=== PATIENT | male | born 1960 | race Caucasian/White ===

== ENCOUNTER 2017-03-28 08:27 | Inpatient (IN) | payer OTHER ==
[~2017-03-28] VITALS: Ht 188 cm; Wt 131.5 kg
--- NOTE | 2017-03-28 08:38 | ED CARDIAC/CP/PALPITATIONS ---
History of Present Illness General Chief Complaint: General Adult Stated Complaint: SENT IN BY GI FOR ?RAPID AFIB Source: patient, old records Exam Limitations: no limitations Vital Signs & Intake/Output Vital Signs & Intake/Output Vital Signs Date Time Temp Pulse Resp B/P B/P Pulse O2 O2 Flow FiO2 Mean Ox Delivery Rate 03/28 1239 135 18 110/84 100 Room Air 03/28 1115 98.3 136 18 110/80 100 Room Air 03/28 1005 98.6 140 18 112/82 100 Room Air 03/28 1002 140 112/82 03/28 0914 154 18 118/84 100 Room Air 03/28 0911 150 118/84 03/28 0844 99 Room Air 03/28 0841 155 124/90 03/28 0834 98.2 155 20 124/90 99 Room Air Allergies Coded Allergies: No Known Allergies (03/28/17) Reconcile Medications Amlodipine Besylate 10 MG TABLET 1 TAB PO DAILY HEART (Reported) Losartan/Hydrochlorothiazide (Losartan-Hctz 100-25 MG Tab) 100 MG-25 MG TABLET 1 TAB PO DAILY HEART (Reported) Triage Note: PT TO ED FROM GI SUITE FOR RAPID AFIB, ON ARRIVAL TO ED PT STATING HE HAS A HX OF AFIB "IN 2009 BUT IT RESOLVED WITH MEDS IN THE HOSPITAL" PT REPORTING HE WAS IN THE GI SUITE FOR A COLONSCOPY TODAY AND STAFF NOTICED "MY HEART RATE WAS REALLY HIGH" PT DENIES ANY COMPLAINTS RECENTLY INCLUDING DENYING CP, SOB, MADISON, HEADACHES. REPORTING A RECENT HX OF CARPAL TUNNEL SURGERY AND SOME GENERAL FATIGUE DUE TO WORK SCHEDULE. PT ARRIVES WITH A 20G IN LAC PLACED BY GI SUITE, EKG COMPLETED BY DR ADELA CARNES AT BEDSIDE TO DISCUSS POC AND EVAL. Triage Nurses Notes Reviewed? yes HPI: Patient went to the GI suite this morning for a colonoscopy. Patient did the prep last night. He went to the GI suite this morning and was found to be in rapid A. fib. Patient denies any chest pain or palpitations. Patient states he did have an EKG approximately 2 months ago prior to having carpal tunnel surgery and he was in sinus rhythm at that time. Patient was in A. fib once the past back in 2010 and required admission to the hospital. Patient denies any lightheadedness. There is no nausea or vomiting. There is no dyspnea on exertion. There is no shortness of breath. Past History Travel History Traveled to [place] past 21 day No Medical History Any Pertinent Medical History? see below for history Cardiovascular: AFIB (PAROXYSMAL) Surgical History Surgical History: CARPAL TUNNEL Psychosocial History Who do you live with Spouse What is your primary language Serbian Tobacco Use: Never used ETOH Use: occasional use Illicit Drug Use: denies illicit drug use Family History Hx Contributory? No Review of Systems Review of Systems Constitutional: Reports: no symptoms. EENTM: Reports: no symptoms. Respiratory: Reports: no symptoms. Cardiovascular: Reports: no symptoms. GI: Reports: no symptoms. Genitourinary: Reports: no symptoms. Musculoskeletal: Reports: no symptoms. Skin: Reports: no symptoms. Neurological/Psychological: Reports: no symptoms. Hematologic/Endocrine: Reports: no symptoms. Immunologic/Allergic: Reports: no symptoms. All Other Systems: Reviewed and Negative Physical Exam Physical Exam General Appearance: well developed/nourished, alert, awake, moderate distress Head: atraumatic Eyes: Bilateral: PERRL, EOMI. Ears, Nose, Throat: normal pharynx, normal ENT inspection Neck: normal inspection, supple, full range of motion Respiratory: normal breath sounds, chest non-tender, no respiratory distress, lungs clear Cardiovascular: normal peripheral pulses, tachycardia, irregularly irregular Gastrointestinal: normal bowel sounds, soft, non-tender, no organomegaly Back: normal inspection, normal range of motion Extremities: normal inspection, normal capillary refill, normal range of motion, no edema Neurologic/Psych: no motor/sensory deficits, awake, alert, oriented x 3, normal gait, normal mood/affect Skin: intact, normal color, warm/dry Lymphatic: no anterior cervical radha Core Measures ACS in differential dx? No Severe Sepsis Present: No Septic Shock Present: No Progress Differential Diagnosis: AMI, atrial fibrillation, hypovolemia, hyperthyroid, myocarditis, pericarditis, pneumonia, pneumothorax, pulmonary embolism Plan of Care: Orders Procedure Date/time Status CBC WITHOUT DIFFERENTIAL 03/29 06 Active BASIC ELECTROLYTES PLUS BUN&CR 03/29 0600 Active Heart Healthy Diet 03/28 L Active TROPONIN LEVEL 03/28 2100 Active EKG 03/28 2100 Active TROPONIN LEVEL 03/28 1500 Active EKG 03/28 1500 Active ECHOCARDIOGRAM 03/28 1016 Active Pathway - chart 03/28 0957 Active House Staff 03/28 0957 Active Patient Data 03/28 0957 Active Code Status 03/28 0957 Active Patient Data 03/28 0948 Active Admit to inpatient 03/28 0946 Active Intake & Output 03/28 0844 Active LIPID PANEL 03/28 0840 Complete Telemetry/Tech Intern 03/28 0838 Active URINALYSIS 03/28 0838 Complete THYROID STIMULATING HORMONE 03/28 0838 Complete TROPONIN LEVEL 03/28 0838 Complete PARTIAL THROMBOPLASTIN TIME 03/28 0838 Complete PROTHROMBIN TIME 03/28 0838 Complete COMPREHENSIVE METABOLIC PANEL 03/28 0838 Complete CBC WITHOUT DIFFERENTIAL 03/28 0838 Complete EKG 03/28 0828 Active Lab Add-on Test 03/28 UNK Active VTE Mechanical Prophylaxis 03/28 UNK Active Telemetry/Tech Intern 03/28 UNK Active Nursing Misc 03/28 UNK Active Current Medications Sig/Robert Start time Last Medication Dose Stop Time Status Admin Heparin Sodium 5,000 UNIT Q8 03/28 1400 CAN (Porcine) Acetaminophen 325 MG Q6 PRN 03/28 1000 AC (Tylenol) Oxycodone HCl 5 MG Q6 PRN 03/28 1000 AC (Roxicodone) Oxycodone/ 2 TAB Q6 PRN 03/28 1000 AC Acetaminophen (Percocet) Diltiazem HCl 125 MG Q12H 03/28 0945 AC 03/28 (Cardizem DRIP) 1134 Dextrose/Water 100 ML (D5W) Heparin Sodium 25,000 UNIT Q24H 03/28 0845 AC 03/28 (Porcine) 0942 (Heparin) Sodium Chloride 500 ML Laboratory Tests 03/28/17 1050: Urine Color YEL, Urine Clarity CLEAR, Urine pH 6.5, Ur Specific [place] 1.010, Urine Protein NEG, Urine Ketones NEG, Urine Nitrite NEG, Urine Bilirubin NEG, Urine Urobilinogen 0.2, Ur Leukocyte Esterase NEG, Ur Microscopic SEDIMENT EXAMINED, Urine RBC RARE, Ur Epithelial Cells RARE, Urine Hemoglobin TRACE- INTACT H, Urine Glucose NEG 03/28/17 0840: Anion Gap 10, Estimated GFR > 60, BUN/Creatinine Ratio 16.0, Glucose 152 H, Calcium 9.0, Total Bilirubin 1.0, AST 20, ALT 36, Alkaline Phosphatase 52, Troponin I < 0.01, Total Protein 6.6, Albumin 3.8, Globulin 2.8, Albumin/ Globulin Ratio 1.4, Triglycerides 108, Cholesterol 116, LDL Cholesterol, Calc 62 L, HDL Cholesterol 33 L, Cholesterol/HDL Ratio 3, TSH 2.700, PT 12.7 H, INR 1.21 H, APTT 27, CBC w Diff NO MAN DIFF REQ, RBC 4.51 L, MCV 90.2, MCH 29.9, RDW 14.1, MPV 8.2, Gran % 59.8, Lymphocytes % 31.4, Monocytes % 6.1, Eosinophils % 2.4, Basophils % 0.3, Absolute Granulocytes 5.0, Absolute Lymphocytes 2.6, Absolute Monocytes 0.5, Absolute Eosinophils 0.2, Absolute Basophils 0, PUBS MCHC 33.2 Diagnostic Imaging: Viewed by Me: Radiology Read. Discussed w/RAD: Radiology Read. Initial ED EKG: AFIB (with rvr) Prior EKG: changed Rhythm Strip: atrial fibrillation (with rvr) Comments: pt not responding to iv boluses iv cardizem, drip started. Departure Departure Disposition: STILL A PATIENT Condition: Guarded Clinical Impression Primary Impression: Atrial fibrillation with RVR Referrals: ARJUN EVERETT MD (PCP/Family) Departure Forms: Customer Survey General Discharge Information Admission Note Spoke With: NATY GILBERT MD Documentation of Exam: Documentation of any treatments & extenuating circumstances including Concerns Regarding Discharge (functional status, medication knowledge or non-compliance, living conditions, etc.) that warrant an admission rather than observation: [ Telemetry monitoring, Cardizem drip, heparin, cardiology consultation.] Critical Care Note Critical Care Note Critical Care Time: mins: (45 min)
--- NOTE | 2017-03-28 08:42 | NUR ---
ETELVINA DRAWN AND SENT TO LAB
--- NOTE | 2017-03-28 08:43 | NUR ---
PT TO ED FROM GI SUITE FOR RAPID AFIB, ON ARRIVAL TO ED PT STATING HE HAS A HX OF AFIB "IN 2009 BUT IT RESOLVED WITH MEDS IN THE HOSPITAL" PT REPORTING HE WAS IN THE GI SUITE FOR A COLONSCOPY TODAY AND STAFF NOTICED "MY HEART RATE WAS REALLY HIGH" PT DENIES ANY COMPLAINTS RECENTLY INCLUDING DENYING CP, SOB, MADISON, HEADACHES. REPORTING A RECENT HX OF CARPAL TUNNEL SURGERY AND SOME GENERAL FATIGUE DUE TO WORK SCHEDULE. PT ARRIVES WITH A 20G IN LAC PLACED BY GI SUITE, EKG COMPLETED BY KEYANNA RITTER, DR CHAPMAN AT BEDSIDE TO DISCUSS POC AND EVAL.
[2017-03-28] MEDS ORDERED: LOSARTAN-HCTZ1 EAC2 PO (08:54)
[2017-03-28] MEDS ORDERED: AMLODIPINE BESY10 M1 PO (08:54)
[2017-03-28 09:00] LABS: ABSOLUTE BASOPHIL COUNT 0 /CUMM (0.0-0.2); ABSOLUTE EOSINOPHIL COUNT 0.2 /CUMM (0.0-0.7); ABSOLUTE LYMPH COUNT 2.6 /CUMM (1.2-3.4); ABSOLUTE MONOCYTE COUNT 0.5 /CUMM (0.10-0.60); BASOPHIL % 0.3 % (0.0-2.0); EOSINOPHIL % 2.4 % (0-5); GRANULOCYTE % 59.8 % (42.2-75.2); HEMATOCRIT 40.7 % (42-52); MEAN CORPUSCULAR HGB 29.9 PG (27.0-31.0); MEAN CORPUSCULAR HGB CONC 33.2 G/DL (33.0-37.0); MEAN CORPUSCULAR VOLUME 90.2 FL (80.0-94.0); MEAN PLATELET VOLUME 8.2 FL (7.4-10.4); PLATELET COUNT 231 /CUMM (130-400); RBC DISTRIBUTION WIDTH 14.1 % (11.5-14.5); RED BLOOD CELL CT 4.51 /CUMM (4.70-6.10); WHITE BLOOD CELL COUNT 8.4 /CUMM (4.8-10.8)
[2017-03-28 09:18] LABS: PT 12.7 SEC (9.4-12.5); PTT 27 SEC (25-37)
--- NOTE | 2017-03-28 09:44 | NUR ---
2ND IV ESTABLISHED, HEPARIN STARTED CO-SIGNED BY LYLE BENAVIDEZ, PT CONTINUES TO DENY CP, SOB, MADISON.
--- NOTE | 2017-03-28 09:54 | RADIOLOGY REPORT ---
EXAMINATION: XR PORTABLE CHEST CLINICAL INFORMATION: Chest pain COMPARISON: 04/12/2010 TECHNIQUE: Portable frontal view of the chest was obtained. FINDINGS: Cardiac leads overlie the chest. The lungs are well expanded. There is no consolidation, edema, or effusion. No pneumothorax. Stable prominence of the cardiac silhouette. No acute osseous abnormality. IMPRESSION: No acute pulmonary findings. Stable prominence of the cardiac silhouette.
--- NOTE | 2017-03-28 10:03 | NUR ---
DR GILBERT AT BEDSIDE FOR EVAL, PHARMACY CALLED FOR DADA GTT
--- NOTE | 2017-03-28 10:42 | History & Physical ---
OPAL GODOY 03/28/17 1022: General Information and HPI MD Statement: I have seen and personally examined EUFEMIA RIVAS and documented this H&P. The patient is a 56 year old M who presented with a patient stated chief complaint of [afib]. Source of Information: patient, old records Exam Limitations: no limitations History of Present Illness: Patient is a 56-year-old male with past medical history of paroxysmal A. fib(in 2009), hypertension, obesity, obstructive sleep apnea was sent to the ED from the GI suite this morning for A. fib with rapid RVR. The patient was supposed to get a colonoscopy this morning at the GI suite. He has been having rectal pain for the past 2 weeks and was evaluated by GI recently. He has history of hemorrhoids in the past and therefore the colonoscopy was planned for today. This morning at the GI suite he was found to be in A. fib with rapid RVR and therefore was sent to ED for evaluation. Patient denies any symptoms like chest pain, shortness of breath, palpitations, nausea, vomiting, headache, dizziness, abdominal pain, urinary or bowel symptoms. He was completely unaware of his heart beating so fast. He had a similar episode back in 2009 when he was admitted to the hospital for atrial fibrillation with rapid RVR. At that time he was treated with IV heparin and IV Cardizem and later transitioned to by mouth Cardizem and Coumadin on discharge. All this has been documented in the discharge summary by Dr. Arteaga back in 2009.The patient however denies being on Coumadin or Cardizem. He reports that he received subcutaneous Lovenox shots for anticoagulation and not Coumadin. He remembers being on meds for a while after the episode however does not remember the exact medications that he took. He saw Dr. Arteaga about a month back for cardiac clearance for a couple tunnel surgery. During that time he was in normal sinus rhythm. His only medical history is hypertension for which he is on amlodipine and losartan. He is a nonsmoker, nondrinker. Works as a construction management assistant. In the ED vitals were a temperature of 98.2, pulse 155, respiration 20, blood pressure 124/90, saturating 99% on room air. Labs showed no white count, H&H 13.5/40.7, normal electrolytes, troponin negative, normal TSH, UA pending EKG showed atrial fibrillation with a rate 124-174, left axis deviation, QTC 509 ECHO from 2009 showed a normal left ventricular systolic function with an ejection fraction of 55% and mild to moderate concentric left ventricular hypertrophy. Patient received 3X10 mg IV pushes of Cardizem in the ED and was started on a Cardizem drip. Anti-coagulation started with heparin drip. Allergies/Medications Allergies: Coded Allergies: No Known Allergies (03/28/17) Home Med list Amlodipine Besylate 10 MG TABLET 1 TAB PO DAILY HEART (Reported) Losartan/Hydrochlorothiazide (Losartan-Hctz 100-25 MG Tab) 100 MG-25 MG TABLET 1 TAB PO DAILY HEART (Reported) Past History Travel History Traveled to [place] past 21 day No Medical History Neurological: NONE EENT: NONE Cardiovascular: AFIB, hypertension Respiratory: SLEEP APNEA Gastrointestinal: HEMMORHOIDS Hepatic: NONE Renal: NONE Musculoskeletal: CARPAL TUNNEL SX Psychiatric: NONE Endocrine: NONE Blood Disorders: NONE Cancer(s): NONE Surgical History Surgical History: none Past Family/Social History Psychosocial History ETOH Use: occasional use Illicit Drug Use: denies illicit drug use Review of Systems Review of Systems Constitutional: Reports: no symptoms. EENTM: Reports: no symptoms. Cardiovascular: Reports: no symptoms. Respiratory: Reports: no symptoms. GI: Reports: no symptoms. Genitourinary: Reports: no symptoms. Musculoskeletal: Reports: no symptoms. Skin: Reports: no symptoms. Exam & Diagnostic Data Last 24 Hrs of Vital Signs/I&O Vital Signs Date Time Temp Pulse Resp B/P B/P Pulse O2 O2 Flow FiO2 Mean Ox Delivery Rate 03/28 1005 98.6 140 18 112/82 100 Room Air 03/28 1002 140 112/82 03/28 0914 154 18 118/84 100 Room Air 03/28 0911 150 118/84 03/28 0844 99 Room Air 03/28 0841 155 124/90 03/28 0834 98.2 155 20 124/90 99 Room Air Intake & Output 03/28 1600 03/28 0800 03/28 0000 Intake Total 1000 Output Total Balance 1000 Intake, IV 1000 Patient 131.542 kg Weight Physical Exam General Appearance Alert, Oriented X3, Cooperative, No Acute Distress, obese Skin No Rashes, No Breakdown Skin Temp/Moisture Exam: Warm/Dry Sepsis Skin Exam (color): Normal for Ethnicity HEENT Atraumatic, PERRLA, EOMI, Mucous Membr. moist/pink Neck Supple, thick Lymphatic Cervical nl Cardiovascular Normal S1, Normal S2, irregularly irregular heart rate Lungs Clear to Auscultation, Normal Air Movement Abdomen Normal Bowel Sounds, Soft, distended Neurological Normal Speech, Strength at 5/5 X4 Ext, Normal Tone, Sensation Intact, Cranial Nerves 3-12 NL Extremities No Clubbing, No Cyanosis, No Edema, Normal Pulses Last 24 Hrs of Labs/Segundo: Laboratory Tests 03/28/17 0840: Anion Gap 10, Estimated GFR > 60, BUN/Creatinine Ratio 16.0, Glucose 152 H, Calcium 9.0, Total Bilirubin 1.0, AST 20, ALT 36, Alkaline Phosphatase 52, Troponin I < 0.01, Total Protein 6.6, Albumin 3.8, Globulin 2.8, Albumin/ Globulin Ratio 1.4, TSH 2.700, PT 12.7 H, INR 1.21 H, APTT 27, CBC w Diff NO MAN DIFF REQ, RBC 4.51 L, MCV 90.2, MCH 29.9, RDW 14.1, MPV 8.2, Gran % 59.8, Lymphocytes % 31.4, Monocytes % 6.1, Eosinophils % 2.4, Basophils % 0.3, Absolute Granulocytes 5.0, Absolute Lymphocytes 2.6, Absolute Monocytes 0.5, Absolute Eosinophils 0.2, Absolute Basophils 0, PUBS MCHC 33.2 Assessment/Plan Assessment: Patient is a 56-year-old male with past medical history of paroxysmal A. fib(in 2009), hypertension, obesity, obstructive sleep apnea was sent to the ED from the GI suite this morning for A. fib with rapid RVR. In the ED vitals were a temperature of 98.2, pulse 155, respiration 20, blood pressure 124/90, saturating 99% on room air. Labs showed no white count, H&H 13.5/40.7, normal electrolytes, troponin negative, normal TSH, UA pending EKG showed atrial fibrillation with a rate 124-174, left axis deviation, QTC 509 ECHO from 2009 showed a normal left ventricular systolic function with an ejection fraction of 55% and mild to moderate concentric left ventricular hypertrophy. Patient received 3X10 mg IV pushes of Cardizem in the ED and was started on a Cardizem drip. Anti-coagulation started with heparin drip. Assessment * A. fib with rapid RVR * Hypertension * Obesity * Obstructive sleep apnea Plan: * Admit to telemetry * 3 sets of troponin and EKG to rule out ACS * Continue Cardizem drip for rate control * Continue heparin drip for anticoagulation * Plan to transition to by mouth Cardizem tomorrow if heart rate well controlled (consistently below 100). We'll start with short acting like 30 every 6 of Cardizem by mouth. * [id number] score shows intermediate risk of thromboembolic event. Plan is to start on normal anti-coagulant like Eliquis from tomorrow. * We will get a new echocardiogram * Check lipid panel * Will hold off on home medications amlodipine and losartan at this time since blood pressure is borderline and patient is on Cardizem drip. Can restart meds once blood pressure more stable. * Cardiology consult appreciated * Please confirm with GI regarding a future date for the procedure * DVT prophylaxis IV heparin * Heart healthy diet * Mild pain pathway * Full code As Ranked By This Provider Problem List: 1. Afib 2. Hypertension Core Measures/Miscellaneous Acute Coronary Syndrome ACS Diagnosis: No Cerebrovascular Accident CVA/TIA Diagnosis: No Congestive Heart Failure CHF Diagnosis: No VTE (View Protocol) VTE Risk Factors: Acute medical illness (afib), Age > 40, Obesity [facility] prophylaxis d/t: No contraindications No VTE Pharm Prophylaxis d/t: No contraindications VTE Diagnosis: No VTE Type: NONE VTE Confirmed by (Test): NONE Sepsis (View Protocol) Severe Sepsis Present: No Septic Shock Septic Shock Present: No Miscellaneous Documentation Attending Case Discussed With: Mustapha ARTEAGA MD Primary Care Physician: ARJUN EVERETT MD Patient sees these Specialists Dr arteaga Level of Patient Care: Telemetry NATY GILBERT MD 03/28/17 1052: Past Family/Social History Family History Relations & Conditions if any FATHER Diabetes mellitus MOTHER Diabetes mellitus Attending MD Review Statement Attending Statement Attending Statement: examined this patient, discuss w/resident/PA/POWER SHOVEL OPERATOR, agreed w/resident/PA/POWER SHOVEL OPERATOR, discussed with family, reviewed EMR data (avail), discussed with nursing, reviewed images, amended to note Attending Assessment/Plan: The patient is a 56-year-old male who is followed in the office by Dr. Arteaga with history of a prior episode of atrial fibrillation in 2010. He was scheduled for a colonoscopy this morning. Upon arrival in the GI suite, he was found to be in atrial flutter ablation with rapid ventricular rate. He was sent to the emergency department for further management. Dementia happened, he has been treated with IV diltiazem and IV heparin. He reports that he was feeling well up until this episode. No recent chest pain. No palpitations. No shortness of breath. No diaphoresis. No lightheadedness or dizziness. No nausea or vomiting. Review of systems: No fever. No chills. No rash. No tremor. No melena. All other systems were reviewed, and were noted to be negative. Vital Signs Date Time Temp Pulse Resp B/P B/P Pulse O2 O2 Flow FiO2 Mean Ox Delivery Rate 03/28 1005 98.6 140 18 112/82 100 Room Air 03/28 1002 140 112/82 03/28 0914 154 18 118/84 100 Room Air 03/28 0911 150 118/84 03/28 0844 99 Room Air 03/28 0841 155 124/90 03/28 0834 98.2 155 20 124/90 99 Room Air Gen: The patient is in no acute distress HEENT: Normal nose, ears, and oropharynx. Pupils equal bilaterally. Conjunctiva normal. Neck: Supple with no JVD, no masses, and no thyromegaly Lungs: Clear to auscultation with normal respiratory effort Heart: Irregularly irregular, S1, S2, 1/6 systolic murmur. No peripheral edema, 2+ pulses in the lower extremities bilaterally Abdomen: Soft, nontender, no masses. No hepatomegaly. No splenomegaly Extremities: No clubbing or cyanosis. Normal muscle strength in the upper and lower extremities Skin: Normal skin turgor with no skin ulcers or lesions noted. Neuro: Cranial nerves intact. Sensation intact Psych: Alert and oriented 3 with appropriate affect EKG tracing is independently reviewed, and reveals atrial fibrillation with rapid ventricular rate Chest x-ray: No acute pulmonary findings. Stable prominence of the cardiac silhouette. Assessment: 1. Hypertension 2. Objective sleep apnea 3. Atrial fibrillation with rapid ventricular rate. Prior history of paroxysmal atrial fibrillation 2010 Plan: * Admit to telemetry * Start Cardizem drip, titrate to ventricular rate less than 110 * Hold losartan and HCTZ for now to avoid hypotension on diltiazem * Discontinue amlodipine * Will change to by mouth diltiazem tomorrow * IV heparin per protocol. We will plan on changing to oral anticoagulation prior to discharge. I recommended Sharifa, however the patient wishes to discuss the options with his , who is a nurse. * Echocardiogram * Serial troponin to rule out myocardial infarctions
--- NOTE | 2017-03-28 11:14 | NUR ---
PT SEEN AT BEDSIDE. HOUSE STAFF IN ROOM.
--- NOTE | 2017-03-28 11:14 | NUR ---
PT CONTINUES TO REST COMFORTABLY, CONTINUE TO AWAIT CARDIZEM GTT FROM PHARMACY. AT BEDSIDE, PT AND FAMILY INFORMED OF POC. DENY ANY FURTHER QUESTIONS OR CONCERNS.
--- NOTE | 2017-03-28 12:39 | NUR ---
PT CONTINUES TO BE TACHYCARDIC, BP STABLE, WILL NOTIFY TELE HOSPITAL WARD CLERK
--- NOTE | 2017-03-28 12:43 | NUR ---
TELE RESIDENT AMAN PAGED, AWAITING CALL BACK REGARDING CARDIZEM GTT
--- NOTE | 2017-03-28 12:56 | NUR ---
TELE RESIDENT PAGED X2, NO CALL BACK
--- NOTE | 2017-03-28 12:58 | NUR ---
PER AMAN TELE RESIDENT, INCREASE CARDIZEM GTT TO 12.5MG/HR. SHE STATED SHE WILL PLACE ORDER TO INCREASE
--- NOTE | 2017-03-28 13:21 | NUR ---
CARDIZEM GTT TITRATED UP TO 12.5MG/HR PER EMAR
--- NOTE | 2017-03-28 14:40 | NUR ---
FLOOR UPDATED ON DELAY OF REPORT AND TRANSFER, DISCUSSED PT WITH MARIELLE FOLDER OPERATOR WHO STATED SHE WILL HOLD BED FOR PATIENT
--- NOTE | 2017-03-28 14:51 | NUR ---
SPOKE TO AMAN RN REGARDING CONTINUED TACHYCARDIA, AMAN STATING SHE WILL ORDER A BOLUS DOSE AND THEN WOULD LIKE TO BE CALLED WITH 30 MIN AFTER DOSE FOR AN UPDATE.
--- NOTE | 2017-03-28 15:31 | NUR ---
1500 TROP DRAWN AND SENT, PT REPORTS NO PAIN NO SOB NO DIZZYNESS. REBOLUS OF 10 MG CARDIZEM GIVEN AND DRIP INCREASED TO 15. PER ORDER.
--- NOTE | 2017-03-28 16:08 | NUR ---
1ST 6 HR PTT DRAWN AND SENT.
--- NOTE | 2017-03-28 16:14 | NUR ---
NURSE UNAVAILABLE FOR REPORT.
--- NOTE | 2017-03-28 16:27 | NUR ---
NO CHANGE IN BP 2ND 500 CC BOLUS HUNG.
[2017-03-28 16:30] LABS: PTT 30 SEC (25-37)
--- NOTE | 2017-03-28 16:30 | NUR ---
HEART HEALTHY FOOD TRAY ORDERED
--- NOTE | 2017-03-28 16:45 | NUR ---
HEPARIN DRIP PROTOCOL DISCUSSED WITH DANILO LÓPEZ 211 OK TO GIVE 9800 F/B DRIP INCREASE OF 4 UNITS/KG/HR.
--- NOTE | 2017-03-28 17:03 | NUR ---
PER DR. CHAPMAN GIVE 5,000 UNIT BOLUS, AND INCREASE DRIP BY 4 UNITS PER KG.
--- NOTE | 2017-03-28 17:19 | NUR ---
REPORT TO NATALIA GARCIA TO GO TO 184 INSTEAD.
[2017-03-28 18:13] VITALS: BP 116/68
[2017-03-28 23:10] LABS: PTT 47 SEC (25-37)
[2017-03-29 00:16] VITALS: BP 108/70
--- NOTE | 2017-03-29 07:23 | PN- Housestaff ---
Subjective Follow-up For: - Afib with RVR Complaints: no complaints Tele-Events Since Last Visit: Afib 113-136 Subjective: Patient seen and examined at bedside. He denies any chest pain, shortness of breath. He continues to remain tachycardic and in A. Fib. Review of Systems Constitutional: Denies: chills, fever, weakness. EENTM: Denies: visual changes. Cardiovascular: Denies: chest pain, orthopena, palpitations. Respiratory: Denies: cough, short of breath, sputum production, wheezing. Gastrointestinal: Denies: abdominal pain, constipation, diarrhea, nausea, vomiting. Genitourinary: Denies: discharge, dysuria, frequency, hematuria. Musculoskeletal: Reports: no symptoms. Objective Last 24 Hrs of Vital Signs/I&O Vital Signs Date Time Temp Pulse Resp B/P B/P Pulse O2 O2 Flow FiO2 Mean Ox Delivery Rate 03/29 0016 98.6 126 20 108/70 96 03/28 2113 120 118/70 03/28 1813 99.6 120 20 116/68 03/28 1730 98.3 138 22 100/60 03/28 1721 138 22 100/60 99 Room Air 03/28 1542 133 108/60 100 03/28 1533 98.3 140 18 112/84 03/28 1413 98.3 140 18 112/84 100 Room Air 03/28 1239 135 18 110/84 100 Room Air 03/28 1115 98.3 136 18 110/80 100 Room Air 03/28 1005 98.6 140 18 112/82 100 Room Air 03/28 1002 140 112/82 03/28 0914 154 18 118/84 100 Room Air 03/28 0911 150 118/84 03/28 0844 99 Room Air 03/28 0841 155 124/90 03/28 0834 98.2 155 20 124/90 99 Room Air Intake & Output 03/29 0800 03/29 0000 03/28 1600 Intake Total 646 1350 1000 Output Total 550 800 Balance 96 550 1000 Intake, IV 654 796 9676 Intake, Oral 240 500 Output, Urine 550 800 Patient 290 lb 290 lb Weight Physical Exam General Appearance: Alert, Oriented X3, Cooperative, No Acute Distress HEENT: Atraumatic, PERRLA, EOMI, Mucous Membr. moist/pink Neck: Supple, No JVD, No thryomegaly, +2 Carotid Pulse wo Bruit, No LAD Cardiovascular: Regular Rate, Normal S1, Normal S2, No Murmurs Lungs: Clear to Auscultation, Normal Air Movement Abdomen: Normal Bowel Sounds, Soft, No Tenderness, No Hepatospenomegaly, No Masses Neurological: Normal Gait, Normal Speech, Strength at 5/5 X4 Ext, Normal Tone, Sensation Intact, Cranial Nerves 3-12 NL, Reflexes 2+ Extremities: No Clubbing, No Cyanosis, No Edema, Normal Pulses, No Tenderness/ Swelling Vascular: Normal Pulses, Pulses Symmetrical Current Medications: Current Medications Sig/Robert Start time Last Medication Dose Route Stop Time Status Admin Acetaminophen 325 MG Q6 PRN 03/28 1000 AC 03/28 PO 2028 Diltiazem HCl 0 .STK-MED ONE 03/28 1527 DC .ROUTE Diltiazem HCl 10 MG ONCE ONE 03/28 1500 DC 03/28 IV 03/28 1501 1533 Diltiazem HCl 0 .STK-MED ONE 03/28 0954 DC .ROUTE Diltiazem HCl 10 MG ONCE ONE 03/28 0945 DC 03/28 IV PUSH 03/28 0946 1002 Diltiazem HCl 125 MG Q12H 03/28 0945 AC 03/28 Dextrose/Water 100 ML IV 2113 Diltiazem HCl 10 MG ONCE ONE 03/28 0900 DC 03/28 IV PUSH 03/28 0901 0911 Diltiazem HCl 0 .STK-MED ONE 03/28 0900 DC .ROUTE Diltiazem HCl 10 MG ONCE ONE 03/28 0845 DC 03/28 IV 03/28 0846 0841 Diltiazem HCl 0 .STK-MED ONE 03/28 0842 DC .ROUTE Heparin Sodium 5,000 UNIT ONCE ONE 03/29 0100 DC 03/29 (Porcine) IV 03/29 0101 0102 Heparin Sodium 25,000 UNIT Q24H 03/29 0045 AC 03/29 (Porcine) IV 0100 Sodium Chloride 500 ML Heparin Sodium 0 .STK-MED ONE 03/28 1654 DC (Porcine) .ROUTE Heparin Sodium 5,000 UNIT Q8 03/28 1400 CAN (Porcine) SC Heparin Sodium 0 .STK-MED ONE 03/28 0902 DC (Porcine) .ROUTE Heparin Sodium 5,000 UNIT ONCE ONE 03/28 0845 DC 03/28 (Porcine) IV PUSH 03/28 0846 0942 N/A 1 UNIT Heparin Sodium 25,000 UNIT Q24H 03/28 0845 DC 03/28 (Porcine) IV 0942 Sodium Chloride 500 ML Metoprolol Tartrate 25 MG BID 03/28 2200 AC 03/28 PO 2113 Metoprolol Tartrate 0 .STK-MED ONE 03/28 1733 DC IV Metoprolol Tartrate 5 MG ONCE ONE 03/28 1700 DC 03/28 IV 03/28 1701 1730 Metoprolol Tartrate 25 MG BID 03/28 1700 DC PO Oxycodone HCl 5 MG Q6 PRN 03/28 1000 AC PO Oxycodone/ 2 TAB Q6 PRN 03/28 1000 AC Acetaminophen PO Sodium Chloride 500 ML BOLUS ONE 03/28 1700 DC 03/28 IV 03/28 1759 2024 Sodium Chloride 1,000 ML BOLUS ONE 03/28 1545 DC 03/28 IV 03/28 1644 1554 Last 24 Hrs of Lab/Segundo Results Last 24 Hrs of Labs/Mics: Laboratory Tests 03/29/17 0649: Sodium Pending, Potassium Pending, Chloride Pending, Carbon Dioxide Pending, Anion Gap Pending, BUN Pending, Creatinine Pending, BUN/Creatinine Ratio Pending , APTT Pending, CBC w Diff Pending, WBC Pending, RBC Pending, Hgb Pending, Hct Pending, MCV Pending, MCH Pending, RDW Pending, Plt Count Pending, MPV Pending, PUBS MCHC Pending 03/28/17 2250: Troponin I < 0.01, APTT 47 H 03/28/17 1600: APTT 30 03/28/17 1515: Troponin I < 0.01 03/28/17 1050: Urine Color YEL, Urine Clarity CLEAR, Urine pH 6.5, Ur Specific [place] 1.010, Urine Protein NEG, Urine Ketones NEG, Urine Nitrite NEG, Urine Bilirubin NEG, Urine Urobilinogen 0.2, Ur Leukocyte Esterase NEG, Ur Microscopic SEDIMENT EXAMINED, Urine RBC RARE, Ur Epithelial Cells RARE, Urine Hemoglobin TRACE- INTACT H, Urine Glucose NEG 03/28/17 0840: Anion Gap 10, Estimated GFR > 60, BUN/Creatinine Ratio 16.0, Glucose 152 H, Calcium 9.0, Total Bilirubin 1.0, AST 20, ALT 36, Alkaline Phosphatase 52, Troponin I < 0.01, Total Protein 6.6, Albumin 3.8, Globulin 2.8, Albumin/ Globulin Ratio 1.4, Triglycerides 108, Cholesterol 116, LDL Cholesterol, Calc 62 L, HDL Cholesterol 33 L, Cholesterol/HDL Ratio 3, TSH 2.700, PT 12.7 H, INR 1.21 H, APTT 27, CBC w Diff NO MAN DIFF REQ, RBC 4.51 L, MCV 90.2, MCH 29.9, RDW 14.1, MPV 8.2, Gran % 59.8, Lymphocytes % 31.4, Monocytes % 6.1, Eosinophils % 2.4, Basophils % 0.3, Absolute Granulocytes 5.0, Absolute Lymphocytes 2.6, Absolute Monocytes 0.5, Absolute Eosinophils 0.2, Absolute Basophils 0, PUBS MCHC 33.2 Assessment/Plan Assessment: 56-year-old gentleman with a past medical history of paroxysmal A. fib in 2009, hypertension, obesity, obstructive sleep apnea who presented to the ER from the GI suite yesterday morning after he was found to be in A. fib with rapid RVR. In the ED vitals were a temperature of 98.2, pulse 155, respiration 20, blood pressure 124/90, saturating 99% on room air. On physical exam he is obese, alert and oriented 3, cooperative and in no acute distress. HEENT revealed PERRLA, moist mucous membranes. Examination of the neck did not reveal an elevated JVP, no cervical lymphadenopathy. Cardiovascular exam pertinent for an irregularly irregular heart rate, normal S1 , S2, no murmurs rubs or gallops appreciated. Chest was clear to auscultation bilaterally. Abdominal exam is benign with abdomen soft, nontender, nondistended with normal bowel sounds in all quadrants. Neurological exam was grossly unremarkable. Labs showed no white count, H&H 13.5/40.7, normal electrolytes, troponin negative, normal TSH, UA pending EKG showed atrial fibrillation with a rate 124-174, left axis deviation, QTC 509 ECHO from 2009 showed a normal left ventricular systolic function with an ejection fraction of 55% and mild to moderate concentric left ventricular hypertrophy. Patient received 3X10 mg IV pushes of Cardizem in the ED and was started on a Cardizem drip. Anti-coagulation started with heparin drip. Assessment and plan Patient was admitted to telemetry for a baby with RVR. #Atrial fibrillation with rapid ventricular rate ACS was ruled out with troponins 3 and EKG negative for any ischemia Patient continues to remain tachycardic in the 1 teens to 120s despite being on 15 mg per hour off Cardizem. We'll start him on Cardizem 30 mg every 6 hours. Increase metoprolol to 25 mg by mouth twice a day from 12.5 mg by mouth twice a day. Continue to titrate Cardizem drip down to maintain a heart rate less than 110. We'll discontinue IV heparin and start him on to Taxol 150 mg by mouth twice a day Follow-up echocardiogram We'll consider discharge planning once heart rate is better controlled on oral medications and he is off cardizem drip . #Hypertension Currently stable Vitals every shift DVT prophylaxis On Eliquis Diet Heart healthy CODE STATUS Full code Problem List: 1. Atrial fibrillation with RVR Pain Ratin Pain Location: N/A Pain Goal: Remain pain free Pain Plan: KATHY Tomorrow's Labs & Rationales: BEP - MONITOR K
--- NOTE | 2017-03-29 07:45 | PN- Cardiology ---
Subjective Subjective: Feeling well. No chest pain. No palpitations. No diaphoresis. He remains in atrial fibrillation. Ventricular rate remains mildly elevated. Objective Vital Signs and I&Os Vital Signs Date Time Temp Pulse Resp B/P B/P Pulse O2 O2 Flow FiO2 Mean Ox Delivery Rate 03/29 0016 98.6 126 20 108/70 96 03/28 2113 120 118/70 03/28 1813 99.6 120 20 116/68 03/28 1730 98.3 138 22 100/60 03/28 1721 138 22 100/60 99 Room Air 03/28 1542 133 108/60 100 03/28 1533 98.3 140 18 112/84 03/28 1413 98.3 140 18 112/84 100 Room Air 03/28 1239 135 18 110/84 100 Room Air 03/28 1115 98.3 136 18 110/80 100 Room Air 03/28 1005 98.6 140 18 112/82 100 Room Air 03/28 1002 140 112/82 03/28 0914 154 18 118/84 100 Room Air 03/28 0911 150 118/84 03/28 0844 99 Room Air 03/28 0841 155 124/90 03/28 0834 98.2 155 20 124/90 99 Room Air Intake & Output 03/29 0800 03/29 0000 03/28 1600 15 0800 03/28 0000 03/27 1600 Intake Total 646 1350 1000 Output Total 550 800 Balance 96 550 1000 Intake, IV 410 310 2731 Intake, Oral 240 500 Output, Urine 550 800 Patient 290 lb 290 lb Weight Physical Exam: Gen: The patient is in no acute distress HEENT: Normal nose, ears, and oropharynx. Pupils equal bilaterally. Conjunctiva normal. Neck: Supple with no JVD, no masses, and no thyromegaly Lungs: Clear to auscultation with normal respiratory effort Heart: Irregularly irregular, S1, S2, 1/6 systolic murmur. No peripheral edema, 2+ pulses in the lower extremities bilaterally Abdomen: Soft, nontender, no masses. No hepatomegaly. No splenomegaly Extremities: No clubbing or cyanosis. Normal muscle strength in the upper and lower extremities Skin: Normal skin turgor with no skin ulcers or lesions noted. Neuro: Cranial nerves intact. Sensation intact Current Medications: Current Medications Sig/Robert Start time Last Medication Dose Route Stop Time Status Admin Acetaminophen 325 MG Q6 PRN 03/28 1000 AC 03/28 PO 2028 Diltiazem HCl 0 .STK-MED ONE 03/28 1527 DC .ROUTE Diltiazem HCl 10 MG ONCE ONE 03/28 1500 DC 03/28 IV 03/28 1501 1533 Diltiazem HCl 0 .STK-MED ONE 03/28 0954 DC .ROUTE Diltiazem HCl 10 MG ONCE ONE 03/28 0945 DC 03/28 IV PUSH 03/28 0946 1002 Diltiazem HCl 125 MG Q12H 03/28 0945 AC 03/28 Dextrose/Water 100 ML IV 2113 Diltiazem HCl 10 MG ONCE ONE 03/28 0900 DC 03/28 IV PUSH 03/28 0901 0911 Diltiazem HCl 0 .STK-MED ONE 03/28 0900 DC .ROUTE Diltiazem HCl 10 MG ONCE ONE 03/28 0845 DC 03/28 IV 03/28 0846 0841 Diltiazem HCl 0 .STK-MED ONE 03/28 0842 DC .ROUTE Heparin Sodium 5,000 UNIT ONCE ONE 03/29 0100 DC 03/29 (Porcine) IV 03/29 0101 0102 Heparin Sodium 25,000 UNIT Q24H 03/29 0045 AC 03/29 (Porcine) IV 0100 Sodium Chloride 500 ML Heparin Sodium 0 .STK-MED ONE 03/28 1654 DC (Porcine) .ROUTE Heparin Sodium 5,000 UNIT Q8 03/28 1400 CAN (Porcine) SC Heparin Sodium 0 .STK-MED ONE 03/28 0902 DC (Porcine) .ROUTE Heparin Sodium 5,000 UNIT ONCE ONE 03/28 0845 DC 03/28 (Porcine) IV PUSH 03/28 0846 0942 N/A 1 UNIT Heparin Sodium 25,000 UNIT Q24H 03/28 0845 DC 03/28 (Porcine) IV 0942 Sodium Chloride 500 ML Metoprolol Tartrate 25 MG BID 03/28 2200 AC 03/28 PO 2113 Metoprolol Tartrate 0 .STK-MED ONE 03/28 1733 DC IV Metoprolol Tartrate 5 MG ONCE ONE 03/28 1700 DC 03/28 IV 03/28 1701 1730 Metoprolol Tartrate 25 MG BID 03/28 1700 DC PO Oxycodone HCl 5 MG Q6 PRN 03/28 1000 AC PO Oxycodone/ 2 TAB Q6 PRN 03/28 1000 AC Acetaminophen PO Sodium Chloride 500 ML BOLUS ONE 03/28 1700 DC 03/28 IV 03/28 1759 2024 Sodium Chloride 1,000 ML BOLUS ONE 03/28 1545 DC 03/28 IV 03/28 1644 1554 Results Last 48 Hrs of Labs/Mics: Laboratory Tests 03/29/17 0649: Sodium Pending, Potassium Pending, Chloride Pending, Carbon Dioxide Pending, Anion Gap Pending, BUN Pending, Creatinine Pending, BUN/Creatinine Ratio Pending , APTT Pending, CBC w Diff Pending, WBC Pending, RBC Pending, Hgb Pending, Hct Pending, MCV Pending, MCH Pending, RDW Pending, Plt Count Pending, MPV Pending, PUBS MCHC Pending 03/28/17 2250: Troponin I < 0.01, APTT 47 H 03/28/17 1600: APTT 30 03/28/17 1515: Troponin I < 0.01 03/28/17 1050: Urine Color YEL, Urine Clarity CLEAR, Urine pH 6.5, Ur Specific [place] 1.010, Urine Protein NEG, Urine Ketones NEG, Urine Nitrite NEG, Urine Bilirubin NEG, Urine Urobilinogen 0.2, Ur Leukocyte Esterase NEG, Ur Microscopic SEDIMENT EXAMINED, Urine RBC RARE, Ur Epithelial Cells RARE, Urine Hemoglobin TRACE- INTACT H, Urine Glucose NEG 03/28/17 0840: Anion Gap 10, Estimated GFR > 60, BUN/Creatinine Ratio 16.0, Glucose 152 H, Calcium 9.0, Total Bilirubin 1.0, AST 20, ALT 36, Alkaline Phosphatase 52, Troponin I < 0.01, Total Protein 6.6, Albumin 3.8, Globulin 2.8, Albumin/ Globulin Ratio 1.4, Triglycerides 108, Cholesterol 116, LDL Cholesterol, Calc 62 L, HDL Cholesterol 33 L, Cholesterol/HDL Ratio 3, TSH 2.700, PT 12.7 H, INR 1.21 H, APTT 27, CBC w Diff NO MAN DIFF REQ, RBC 4.51 L, MCV 90.2, MCH 29.9, RDW 14.1, MPV 8.2, Gran % 59.8, Lymphocytes % 31.4, Monocytes % 6.1, Eosinophils % 2.4, Basophils % 0.3, Absolute Granulocytes 5.0, Absolute Lymphocytes 2.6, Absolute Monocytes 0.5, Absolute Eosinophils 0.2, Absolute Basophils 0, PUBS MCHC 33.2 Assessment/Plan Assessment/Plan Assessment: 1. Hypertension 2. Objective sleep apnea 3. Atrial fibrillation with rapid ventricular rate. Prior history of paroxysmal atrial fibrillation 2010 Plan: * Increase metoprolol to 50 mg by mouth twice a day * Start PO diltiazem 60 mg every 6 hours, and wean off IV diltiazem * Start Pradaxa 150 mg by mouth twice a day * Discontinue IV heparin when first dose of Pradaxa is given * Echocardiogram result pending Continue telemetry? Yes
[2017-03-29 07:54] LABS: ABSOLUTE BASOPHIL COUNT 0 /CUMM (0.0-0.2); ABSOLUTE EOSINOPHIL COUNT 0.2 /CUMM (0.0-0.7); ABSOLUTE GRANULOCYTE CT 5.4 /CUMM (1.4-6.5); ABSOLUTE LYMPH COUNT 2.5 /CUMM (1.2-3.4); ABSOLUTE MONOCYTE COUNT 0.4 /CUMM (0.10-0.60); BASOPHIL % 0.5 % (0.0-2.0); EOSINOPHIL % 2.4 % (0-5); GRANULOCYTE % 63.3 % (42.2-75.2); HEMATOCRIT 38.8 % (42-52); MEAN CORPUSCULAR HGB CONC 33.4 G/DL (33.0-37.0); MEAN CORPUSCULAR VOLUME 89.6 FL (80.0-94.0); PLATELET COUNT 227 /CUMM (130-400); RBC DISTRIBUTION WIDTH 14.3 % (11.5-14.5); RED BLOOD CELL CT 4.32 /CUMM (4.70-6.10); WHITE BLOOD CELL COUNT 8.5 /CUMM (4.8-10.8)
[2017-03-29 08:24] VITALS: BP 110/80
[2017-03-29 08:27] LABS: PTT 54 SEC (25-37)
--- NOTE | 2017-03-29 12:00 | ECHOCARDIOGRAM REPORT ---
EUFEMIA RIVAS Age: 56 : 1960 Gender: M Exam Date: 03/28/2017 19:11 Exam Location: 1 [address] Ht (in): 74 Wt (lb): 290 BSA: 2.67 BP: 110 / 84 Ordering Physician: OPAL GODOY, Referring Physician: Josef Hall MD Technologist: Martha Cool [facility] Room Number: 184 Indications: AFIB/FLUTTER Rhythm: Atrial fibrillation Technical Quality: Fair FINDINGS Left Ventricle Normal size left ventricle. Mild concentric left ventricular hypertrophy. Borderline left ventricular ejection fraction estimated at 50-55%. No obvious regional wall motion abnormalities. Right Ventricle Normal right ventricular size and function. Right Atrium Normal right atrial size. Left Atrium Mild left atrial dilatation. Mitral Valve Mitral valve thickened. Mild mitral regurgitation. Aortic Valve Diffuse thickening (sclerosis) of the aortic valve cusps without reduced excursion. No aortic stenosis. No aortic regurgitation. Tricuspid Valve Tricuspid valve not well visualized, grossly normal. Mild tricuspid regurgitation. Pulmonic Valve Pulmonic valve not well visualized, grossly normal. Trace pulmonic regurgitation. Pericardium No pericardial effusion. Great Vessels 4.2 cm dilated aortic root. CONCLUSIONS Normal size left ventricle. Mild concentric left ventricular hypertrophy. Borderline left ventricular ejection fraction estimated at 50-55%. Mild left atrial dilatation. Mild mitral regurgitation. Mild tricuspid regurgitation. Trace pulmonic regurgitation. Dennis Mueller M.D. (Electronically Signed) Final Date: 29 March 2017 12:00 MEASUREMENTS (Male / Female) Normal Values 2D ECHO LV Diastolic Diameter PLAX 4.6 cm 4.2 - 5.9 / 3.9 - 5.3 cm LV Systolic Diameter PLAX 3.1 cm 2.1 - 4.0 cm LV Fractional Shortening PLAX 32.6 % 25 - 46 % LV Ejection Fraction 2D Teich 61.0 % IVS Diastolic Thickness 1.4 cm LVPW Diastolic Thickness 1.4 cm LV Relative Wall Thickness 0.6 RV Internal Dim ED PLAX 2.8 cm 1.9 - 3.8 cm LVOT Diameter 2.3 cm Aortic Root Diameter 4.1 cm LA Systolic Diameter LX 4.0 cm 3.0 - 4.0 / 2.7 - 3.8 cm LA Volume 60.0 cm 18 - 58 / 22 - 52 cm Ascending Aorta Diameter 3.7 cm DOPPLER AV Peak Velocity 102.0 cm/s AV Peak Gradient 4.2 mmHg AV Mean Velocity 75.7 cm/s AV Mean Gradient 3.0 mmHg AV Velocity Time Integral 18.0 cm LVOT Peak Velocity 85.0 cm/s LVOT Peak Gradient 2.9 mmHg LVOT Mean Velocity 57.3 cm/s LVOT Mean Gradient 2.0 mmHg LVOT Velocity Time Integral 15.1 cm LVOT Stroke Volume 62.7 cm AV Area Cont Eq vti 3.5 cm AV Area Cont Eq pk 3.5 cm MV Peak Velocity 127.5 cm/s MV Peak Gradient 6.5 mmHg MV Mean Velocity 70.1 cm/s MV Mean Gradient 2.5 mmHg Mitral E Point Velocity 125.0 cm/s MV PHT Velocity 142.0 cm/s MV Deceleration Dare 730.0 cm/s MV Pressure Half Time 58.4 ms MV Area PHT 3.8 cm MV Deceleration Time 177.0 ms PV Peak Velocity 74.4 cm/s PV Peak Gradient 2.2 mmHg PV Mean Velocity 50.8 cm/s PV Mean Gradient 1.0 mmHg PV Velocity Time Integral 14.7 cm LV E' Lateral Velocity 11.3 cm/s Mitral E to LV E' Lateral Ratio 11.1 LV E' Septal Velocity 7.0 cm/s Mitral E to LV E' Septal Ratio 17.8
--- NOTE | 2017-03-29 13:04 | Discharge Summary ---
Visit Information Visit Dates Admission Date: 03/28/17 Discharge Date: 03/30/17 Hospital Course Course Attending Physician: Mustapha NEELY MD Primary Care Physician: KARLOS CANTOR,ARJUN Hospital Course: 56-year-old gentleman with a past medical history of paroxysmal A. fib in 2009, hypertension, obesity, obstructive sleep apnea who presented to the ER from the GI suite yesterday morning after he was found to be in A. fib with rapid RVR. In the ED vitals were a temperature of 98.2, pulse 155, respiration 20, blood pressure 124/90, saturating 99% on room air. On physical exam he is obese, alert and oriented 3, cooperative and in no acute distress. HEENT revealed PERRLA, moist mucous membranes. Examination of the neck did not reveal an elevated JVP, no cervical lymphadenopathy. Cardiovascular exam pertinent for an irregularly irregular heart rate, normal S1 , S2, no murmurs rubs or gallops appreciated. Chest was clear to auscultation bilaterally. Abdominal exam is benign with abdomen soft, nontender, nondistended with normal bowel sounds in all quadrants. Neurological exam was grossly unremarkable. Labs showed no white count, H&H 13.5/40.7, normal electrolytes, troponin negative, normal TSH, UA pending EKG showed atrial fibrillation with a rate 124-174, left axis deviation, QTC 509 ECHO from 2009 showed a normal left ventricular systolic function with an ejection fraction of 55% and mild to moderate concentric left ventricular hypertrophy. Patient received 3X10 mg IV pushes of Cardizem in the ED and was started on a Cardizem drip. Anti-coagulation started with heparin drip. Patient was admitted to telemetry for atrial fibrillation with RVR. The following problems were addressed: #Atrial fibrillation with rapid ventricular rate ACS was ruled out with troponins 3 and EKG negative for any ischemia. Patient continued to remain tachycardic in the 1 teens to 120s despite being on 15 mg per hour off Cardizem. He was started on Cardizem 30 mg every 6 hours,as well as Metoprolol carlos dose of which was increased to 25 mg by mouth twice a day. Cardizem drip was titrated down to maintain a heart rate less than 110, and IV heparin was discontinued after he was started on Pradaxa 150 mg by mouth twice a day. Echocardiogram showed normal EF, no RWMA. He is to follow up with his circuit court clerk as an outpatient for ? conversion a nd his GI procedure will have to be resheduled. #Hypertension His home medications were held. His BP remained stable on Metoprolol and Cardizem. Complications: None Allergies: Coded Allergies: No Known Allergies (03/28/17) Significant Procedures: SERVICE DATE: 03/28/17 EXAM TYPE: RAD - XRY-PORTABLE CHEST XRAY FINDINGS: Cardiac leads overlie the chest. The lungs are well expanded. There is no consolidation, edema, or effusion. No pneumothorax. Stable prominence of the cardiac silhouette. No acute osseous abnormality. IMPRESSION: No acute pulmonary findings. Stable prominence of the cardiac silhouette. SERVICE DATE: 03/28/17-1015 EXAM TYPE: CARD - ECHO (COMPLETE) W/CONTRAST FINDINGS Left Ventricle Normal size left ventricle. Mild concentric left ventricular hypertrophy. Borderline left ventricular ejection fraction estimated at 50-55%. No obvious regional wall motion abnormalities. Right Ventricle Normal right ventricular size and function. Right Atrium Normal right atrial size. Left Atrium Mild left atrial dilatation. Mitral Valve Mitral valve thickened. Mild mitral regurgitation. Aortic Valve Diffuse thickening (sclerosis) of the aortic valve cusps without reduced excursion. No aortic stenosis. No aortic regurgitation. Tricuspid Valve Tricuspid valve not well visualized, grossly normal. Mild tricuspid regurgitation. Pulmonic Valve Pulmonic valve not well visualized, grossly normal. Trace pulmonic regurgitation. Pericardium No pericardial effusion. Great Vessels 4.2 cm dilated aortic root. CONCLUSIONS Normal size left ventricle. Mild concentric left ventricular hypertrophy. Borderline left ventricular ejection fraction estimated at 50-55%. Mild left atrial dilatation. Mild mitral regurgitation. Mild tricuspid regurgitation. Trace pulmonic regurgitation. Dennis Gilbert M.D. (Electronically Signed) Final Date: 29 March 2017 12:00 MEASUREMENTS (Male / Female) Normal Values 2D ECHO LV Diastolic Diameter PLAX 4.6 cm 4.2 - 5.9 / 3.9 - 5.3 cm LV Systolic Diameter PLAX 3.1 cm 2.1 - 4.0 cm LV Fractional Shortening PLAX 32.6 % 25 - 46 % LV Ejection Fraction 2D Teich 61.0 % IVS Diastolic Thickness 1.4 cm LVPW Diastolic Thickness 1.4 cm LV Relative Wall Thickness 0.6 RV Internal Dim ED PLAX 2.8 cm 1.9 - 3.8 cm LVOT Diameter 2.3 cm Aortic Root Diameter 4.1 cm LA Systolic Diameter LX 4.0 cm 3.0 - 4.0 / 2.7 - 3.8 cm LA Volume 60.0 cm 18 - 58 / 22 - 52 cm Ascending Aorta Diameter 3.7 cm DOPPLER AV Peak Velocity 102.0 cm/s AV Peak Gradient 4.2 mmHg AV Mean Velocity 75.7 cm/s AV Mean Gradient 3.0 mmHg AV Velocity Time Integral 18.0 cm LVOT Peak Velocity 85.0 cm/s LVOT Peak Gradient 2.9 mmHg LVOT Mean Velocity 57.3 cm/s LVOT Mean Gradient 2.0 mmHg LVOT Velocity Time Integral 15.1 cm LVOT Stroke Volume 62.7 cm AV Area Cont Eq vti 3.5 cm AV Area Cont Eq pk 3.5 cm MV Peak Velocity 127.5 cm/s MV Peak Gradient 6.5 mmHg MV Mean Velocity 70.1 cm/s MV Mean Gradient 2.5 mmHg Mitral E Point Velocity 125.0 cm/s MV PHT Velocity 142.0 cm/s MV Deceleration [place] 730.0 cm/s MV Pressure Half Time 58.4 ms MV Area PHT 3.8 cm MV Deceleration Time 177.0 ms PV Peak Velocity 74.4 cm/s PV Peak Gradient 2.2 mmHg PV Mean Velocity 50.8 cm/s PV Mean Gradient 1.0 mmHg PV Velocity Time Integral 14.7 cm LV E' Lateral Velocity 11.3 cm/s Mitral E to LV E' Lateral Ratio 11.1 LV E' Septal Velocity 7.0 cm/s Mitral E to LV E' Septal Ratio 17.8 Disposition Summary Disposition Principal Diagnosis: Rapid AFIB with RVR Additional Diagnosis: HTN Obesity Ostructive sleep apnea Discharge Disposition: home or self care Discharge Instructions General Discharge Information Code Status: Full Code Patient's Diet: Heart Healthy Patient's Activity: As tolerated Follow-Up Instructions/Appts: Please follow up with your primary care physician in one week. Please follwo up with your circuit court clerk in one week. Medications at Discharge Discharge Medications: Stop taking the following medications: Losartan/Hydrochlorothiazide (Losartan-Hctz 100-25 MG Tab) 100 MG-25 MG TABLET ORAL DAILY Qty = 30 Amlodipine Besylate (Amlodipine Besylate) 10 MG TABLET ORAL DAILY Qty = 30 Start taking the following new medications: Dabigatran Etexilate Mesylate (Pradaxa 150 MG) 150 MG CAPSULE 1 Capsule ORAL TWICE DAILY Qty = 120 No Refills Comments: Last Taken: 03/30/17 Time: 11:00 AM Diltiazem HCl (Cardizem Cd) 240 MG CAP.ER.24H 1 Capsule ORAL DAILY Qty = 30 No Refills Comments: Last Taken: 03/30/17 Time: 11:00 AM Metoprolol Succ XL (Toprol XL) 100 MG TAB.ER.24H 1 Tablet ORAL DAILY Qty = 30 No Refills Copies To: Mustapha NEELY MD; KARLOS CANTOR,ARJUN Attending MD Review Statement Documenting Attending: DENNIS GILBERT MD
[2017-03-29] MEDS ORDERED: METOPROLOL TART50 M1 PO (13:12)
[2017-03-29] MEDS ORDERED: PRADAXA150 M1 PO (13:12)
--- NOTE | 2017-03-29 13:15 | Patient Discharge Instructions ---
Discharge Instructions General Discharge Information You were seen/treated for: Atrial fibrillation with RVR Special Instructions: Please follow up with your primary care physican in one week. Please follow up with your java software engineer in one week. Diet Recommended Diet: Heart Healthy Activity Activity Self Limited: Yes Acute Coronary Syndrome Inclusion Criteria At DC or during hospital stay patient has or had the following: ACS DIAGNOSIS No Discharge Core Measures Meds if any: Prescribed or Continued at Discharge Meds if any: NOT Prescribed or Continued at Discharge Congestive Heart Failure Inclusion Criteria At DC or during hospital stay patient has or had the following: CHF DIAGNOSIS No Discharge Core Measures Meds if any: Prescribed or Continued at Discharge Meds if any: NOT Prescribed or Continued at Discharge Cerebrovascular accident Inclusion Criteria At DC or during hospital stay patient has or had the following: CVA/TIA Diagnosis No Discharge Core Measures Meds if any: Prescribed or Continued at Discharge Meds if any: NOT Prescribed or Continued at Discharge Venous thromboembolism Inclusion Criteria VTE Diagnosis No VTE Type NONE VTE Confirmed by (Test) NONE Discharge Core Measures - Per Current guidelines, there needs to be overlap - treatment for the first 5 days of Warfarin therapy. - If discharged on Warfarin prior to 5 days of - overlap therapy, the patient will need to be - assessed for post discharge needs including - *Post discharge parental anticoagulation - *Warfarin and/or parental anticoagulation education - *Follow up date to check INR post discharge At least 5 days overlap therapy as Inpatient No Meds if any: Prescribed or Continued at Discharge Note: Overlap Therapy is Warfarin and Anticoagulant Meds if any: NOT Prescribed or Continued at Discharge
[2017-03-29 16:46] VITALS: BP 126/78
[2017-03-29 23:22] VITALS: BP 122/84
[2017-03-30 05:34] VITALS: BP 122/86
--- NOTE | 2017-03-30 07:28 | PN- Housestaff ---
Subjective Follow-up For: - Afib with RVR Tele-Events Since Last Visit: NSR heart rate between 73-76 Review of Systems Constitutional: Reports: see HPI. Objective Last 24 Hrs of Vital Signs/I&O Vital Signs Date Time Temp Pulse Resp B/P B/P Pulse O2 O2 Flow FiO2 Mean Ox Delivery Rate 03/30 1051 78 106/74 03/30 1050 78 106/74 03/30 0905 98.7 80 18 122/82 95 Room Air 03/30 0612 72 122/84 03/30 0534 122/86 03/29 2324 116 122/84 03/29 2324 116 122/84 03/29 2322 99.5 103 16 122/84 96 Room Air Intake & Output 03/30 1600 03/30 0800 03/30 0000 Intake Total 610 666 720 Output Total Balance 610 666 720 Intake, IV 10 120 Intake, Oral 600 666 600 Physical Exam General Appearance: Alert, Oriented X3, Cooperative Cardiovascular: Regular Rate, Normal S1, Normal S2, No Murmurs Lungs: Clear to Auscultation, Normal Air Movement Abdomen: Normal Bowel Sounds, Soft, No Tenderness Extremities: No Clubbing, No Cyanosis, No Edema Assessment/Plan Assessment: 56-year-old gentleman with a past medical history of paroxysmal A. fib in 2009, hypertension, obesity, obstructive sleep apnea who presented to the ER from the GI suite yesterday morning after he was found to be in A. fib with rapid RVR. In the ED vitals were a temperature of 98.2, pulse 155, respiration 20, blood pressure 124/90, saturating 99% on room air. On physical exam he is obese, alert and oriented 3, cooperative and in no acute distress. HEENT revealed PERRLA, moist mucous membranes. Examination of the neck did not reveal an elevated JVP, no cervical lymphadenopathy. Cardiovascular exam pertinent for an irregularly irregular heart rate, normal S1 , S2, no murmurs rubs or gallops appreciated. Chest was clear to auscultation bilaterally. Abdominal exam is benign with abdomen soft, nontender, nondistended with normal bowel sounds in all quadrants. Neurological exam was grossly unremarkable. Labs showed no white count, H&H 13.5/40.7, normal electrolytes, troponin negative, normal TSH, UA pending EKG showed atrial fibrillation with a rate 124-174, left axis deviation, QTC 509 ECHO from 2009 showed a normal left ventricular systolic function with an ejection fraction of 55% and mild to moderate concentric left ventricular hypertrophy. Patient received 3X10 mg IV pushes of Cardizem in the ED and was started on a Cardizem drip. Anti-coagulation started with heparin drip. Assessment and plan Patient was admitted to telemetry for a baby with RVR. #Atrial fibrillation with rapid ventricular rate ACS was ruled out with troponins 3 and EKG negative for any ischemia Patient continues to remain tachycardic in the 1 teens to 120s despite being on 15 mg per hour off Cardizem. We'll start him on Cardizem 30 mg every 6 hours. Increase metoprolol to 25 mg by mouth twice a day from 12.5 mg by mouth twice a day. Continue to titrate Cardizem drip down to maintain a heart rate less than 110. We'll discontinue IV heparin and start him on to Taxol 150 mg by mouth twice a day Follow-up echocardiogram We'll consider discharge planning once heart rate is better controlled on oral medications and he is off cardizem drip . #Hypertension Currently stable Vitals every shift DVT prophylaxis On G[employer] Windows Heart healthy CODE STATUS Full code Problem List: 1. Atrial fibrillation with RVR Pain Ratin Pain Location: none Pain Goal: Remain pain free Pain Plan: [facility] Tomorrow's Labs & Rationales: none
[2017-03-30 09:05] VITALS: BP 122/82
[2017-03-30 10:51] VITALS: BP 106/74
--- NOTE | 2017-03-30 14:40 | PN- Cardiology ---
Subjective Subjective: Feeling well. No chest pain. No palpitations. No diaphoresis. No lightheadedness or dizziness. The patient converted from atrial fibrillation to sinus rhythm overnight. Objective Vital Signs and I&Os Vital Signs Date Time Temp Pulse Resp B/P B/P Pulse O2 O2 Flow FiO2 Mean Ox Delivery Rate 03/30 1051 78 106/74 03/30 1050 78 106/74 03/30 0905 98.7 80 18 122/82 95 Room Air 03/30 0612 72 122/84 03/30 0534 122/86 03/29 2324 116 122/84 03/29 2324 116 122/84 03/29 2322 99.5 103 16 122/84 96 Room Air 03/29 1646 98.6 96 20 126/78 95 Room Air 03/29 1637 114 126/78 Intake & Output 03/30 1600 03/30 0800 03/30 0000 03/29 1600 03/29 0800 03/29 0000 Intake Total 610 400 363 5035.6 646 1350 Output Total 550 800 Balance 610 093 496 5968.6 96 550 Intake, IV 10 120 171.6 406 850 Intake, Oral 600 375 646 2600 240 500 Output, Urine 550 800 Patient 290 lb Weight Physical Exam: Gen: NAD HEENT: normal Lungs: clear to auscultation, normal resp. effort Heart: RRR, S1, S2, no murmurs Abdomen: Soft, nontender, no masses Extremities: No clubbing, cyanosis, or edema. Neuro: Alert and oriented x 3, cranial nerves intact Current Medications: Current Medications Sig/Robert Start time Last Medication Dose Route Stop Time Status Admin Acetaminophen 325 MG Q6 PRN 03/28 1000 AC 03/28 PO 2027 Dabigatran 150 MG BID 03/29 1000 AC 03/30 PO 1051 Diltiazem HCl 60 MG Q6H 03/29 1600 AC 03/30 PO 1050 Diltiazem HCl 125 MG Q12H 03/28 0945 DC 03/30 Dextrose/Water 100 ML IV 0040 Metoprolol Tartrate 50 MG BID 03/29 1000 AC 03/30 PO 1051 Oxycodone HCl 5 MG Q6 PRN 03/28 1000 AC PO Oxycodone/ 2 TAB Q6 PRN 03/28 1000 AC Acetaminophen PO Potassium Chloride 40 MEQ ONCE ONE 03/30 1215 DC 03/30 PO 03/30 1216 1340 Results Last 48 Hrs of Labs/Mics: Laboratory Tests 03/30/17 0637: Anion Gap 9, Estimated GFR > 60, BUN/Creatinine Ratio 13.3, Magnesium 2.2 03/30/17 0140: Anion Gap 13, Estimated GFR > 60, BUN/Creatinine Ratio 13.0, Phosphorus 3.5, Magnesium 2.3 03/29/17 0649: Anion Gap 12, Estimated GFR > 60, BUN/Creatinine Ratio 11.1, APTT 54 H, CBC w Diff NO MAN DIFF REQ, RBC 4.32 L, MCV 89.6, MCH 30.0, RDW 14.3, MPV 8.0, Gran % 63.3, Lymphocytes % 28.8, Monocytes % 5.0, Eosinophils % 2.4, Basophils % 0.5, Absolute Granulocytes 5.4, Absolute Lymphocytes 2.5, Absolute Monocytes 0.4, Absolute Eosinophils 0.2, Absolute Basophils 0, PUBS MCHC 33.4 03/28/17 2250: Troponin I < 0.01, APTT 47 H 03/28/17 1600: APTT 30 03/28/17 1515: Troponin I < 0.01 Assessment/Plan Assessment/Plan Assessment: 1. Hypertension 2. Objective sleep apnea 3. Atrial fibrillation with rapid ventricular rate, converted to sinus rhythm. Prior history of paroxysmal atrial fibrillation 2010 Plan: * Change diltiazem to Cardizem CD 240 mg daily * Change metoprolol to Toprol-XL 100 mg daily * Continue Pradaxa 150 mg twice a day * Discharge to home * Follow up with Dr. Hall within one week Continue telemetry? No
[2017-03-30] MEDS ORDERED: METOPROLOL TART50 M1 PO (14:48)
[2017-03-30] MEDS ORDERED: PRADAXA150 M1 PO (14:48)
[2017-03-30] MEDS ORDERED: CARDIZEM CD240 M1 PO (15:18)
[2017-03-30] MEDS ORDERED: TOPROL XL100 M1 PO (15:28)
== END 2017-03-30 15:37 | DRG 310 ==
LOC: ERH 08:27 → 1NO 09:48 → ERHI 09:48 → ENRESERV 12:37 → ENTRNSPT 17:20 → 1NO 17:48 → CMPTRNSPT 18:03 → 1NO 03-29 12:52 → ENPENDDIS 03-30 14:46 → 1NO 03-30 15:37
PROVIDERS: Emergency Medicine; Ophthalmology; Student in an Organized Health Care Education/Training Program; ADMIT Specialist
DX: I48.0 Paroxysmal atrial fibrillation (principal); I10 Essential (primary) hypertension; Z79.01 Long term (current) use of anticoagulants; E66.9 Obesity, unspecified; Z68.37 Body mass index [BMI] 37.0-37.9, adult; G47.33 Obstructive sleep apnea (adult) (pediatric)
CPT/HCPCS: 1NP; 36415; 81001; 82436; 93005; 93010; 96374; 96376; 99291; C8929; J1644; J7040; Q9957